=== PATIENT | female | born 1995 | race Caucasian/White ===

== ENCOUNTER 2018-12-11 19:11 | Emergency (ER) | payer OTHER ==
[2018-12-11] MEDS ORDERED: OXYCODONE-ACETAMINOPHEN 5-325 MG TABLET PO ONE ×2 (19:52→22:28)
[2018-12-11] MEDS ORDERED: IBUPROFEN 600 MG TABLET PO ONE (21:06)
--- NOTE | 2018-12-11 21:10 | ER Document Report ---
ED General - General Chief Complaint: Snake Bite Stated Complaint: SNAKE BITE Time Seen by Provider: 12/11/18 19:52 Mode of Arrival: Ambulatory Information source: Patient Notes: 23-year-old female with no reported past medical history presents after being bitten by a snake. Patient states that she was near a body of water when she noticed just make swimming near some children. She states she had a net so she casted it out and caught the snake. She states that she was able to get the snake out of the net and grabbed by the head when it bit her on her right index finger. She said that the snake was black with yellow rings. This occurred approximately 6:30 PM just prior to arrival. Patient is complaining of an aching throbbing pain in her right index finger. Patient is right-hand dominant. TRAVEL OUTSIDE OF THE [place] IN LAST 30 DAYS: No - HPI Onset: Just prior to arrival Onset/Duration: Sudden Quality of pain: Achy, Throbbing Severity: Mild Pain Level: 1 Associated symptoms: denies: Chest pain, Nonproductive cough, Productive cough, Fever, Nausea, Vomiting, Shortness of breath Exacerbated by: Denies Relieved by: Denies Similar symptoms previously: No Recently seen / treated by doctor: No - Related Data Allergies/Adverse Reactions: No Known Allergies Allergy (Unverified 12/11/18 19:12) Past Medical History - General Information source: Patient - Social History Smoking Status: Never Smoker Frequency of alcohol use: None Drug Abuse: None Lives with: Spouse/Significant other Family History: Reviewed & Not Pertinent Patient has suicidal ideation: No Patient has homicidal ideation: No - Medical History Medical History: Negative Renal/ Medical History: Denies: Hx Peritoneal Dialysis Review of Systems - Review of Systems Notes: REVIEW OF SYSTEMS: CONSTITUTIONAL : Denies fever, chills, or sweats. Denies recent illness. Denies weight loss, recent hospitalizations. EENT: Denies visual changes, eye pain. Denies sore throat, oral lesions, difficulty swallowing. CARDIOVASCULAR: Denies chest pain. Denies palpitations. Denies lower extremity edema. RESPIRATORY: Denies cough. Denies shortness of breath, wheezing. GASTROINTESTINAL: Denies abdominal pain or distention. Denies nausea, vomiting, or diarrhea. Denies blood in vomitus, stools, or per rectum. Denies black, tarry stools. Denies constipation. GENITOURINARY: Denies difficulty urinating, painful urination, frequency, blood in urine, or vaginal discharge. MUSCULOSKELETAL: Denies back or neck pain or stiffness. + joint pain SKIN: Denies rash, lesions or sores. HEMATOLOGIC : Denies easy bruising or bleeding. LYMPHATIC: Denies swollen glands. NEUROLOGICAL: Denies confusion or altered mental status. Denies loss of consciousness. Denies dizziness or lightheadedness. Denies headache. Denies weakness or paralysis. Denies problems difficulty with ambulation, slurred speech. Denies sensory loss, numbness, or tingling. Denies seizures. PSYCHIATRIC: Denies anxiety or stress. Denies depression, suicidal ideation, or homicidal ideation. Denies visual or auditory hallucinations. Physical Exam - Vital signs Vitals: Temp Pulse Resp BP Pulse Ox 98.1 F 96 16 127/77 H 97 12/11/18 19:20 12/11/18 19:20 12/11/18 19:20 12/11/18 19:20 12/11/18 19:20 - Notes Notes: PHYSICAL EXAMINATION: GENERAL: Well-appearing, well-nourished and in no acute distress. HEAD: Atraumatic, normocephalic. EYES: Pupils equal round and reactive to light, extraocular movements intact, conjunctiva are normal. ENT: Nares patent, oropharynx clear without exudates. Moist mucous membranes. NECK: Normal range of motion, supple without lymphadenopathy LUNGS: Breath sounds clear to auscultation bilaterally and equal. No wheezes rales or rhonchi. HEART: Regular rate and rhythm without murmurs ABDOMEN: Soft, nontender, nondistended abdomen. No guarding, no rebound. No masses appreciated. Female : deferred Musculoskeletal: Normal range of motion, no pitting or edema. No cyanosis. Right index finger with 2 small superficial abrasions. No lesions that appear to be puncture camacho. No associated swelling, erythema, ecchymosis. No blistering. NEUROLOGICAL: Cranial nerves grossly intact. Normal speech, normal gait. Normal sensory, motor exams PSYCH: Normal mood, normal affect. SKIN: Right index finger with 2 small superficial abrasions. No lesions that appear to be puncture camacho. No associated swelling, erythema, ecchymosis. No blistering. Course - Re-evaluation Re-evalutation: Temp Pulse Resp BP Pulse Ox 98.1 F 96 16 127/77 H 97 12/11/18 19:20 12/11/18 19:20 12/11/18 19:20 12/11/18 19:20 12/11/18 19:20 12/11/18 21:07 23-year-old female with no reported past medical history presents after being bitten by a snake. Patient states that she was near a body of water when she noticed just make swimming near some children. She states she had a net so she casted it out and caught the snake. She states that she was able to get the snake out of the net and grabbed by the head when it bit her on her right index finger. She said that the snake was black with yellow rings. This occurred approximately 6:30 PM just prior to arrival. Patient is complaining of an aching throbbing pain in her right index finger. Patient is right-hand dominant. Vital signs reviewed and within normal limits. Patient does not appear toxic or dehydrated. She is in no acute distress. Exam is significant for 2 small abrasions to the right index finger without associated erythema, swelling, ecchymosis. Does not appear that the snake actually punctured the skin. I did speak to poison control who recommend a 4-hour observation and if there is no swelling at that time patient can be discharged home. Patient did receive Percocet and Motrin for her pain. Patient was evaluated and treated as appropriate for the patient's presenting symptoms and complaint, with consideration of any critical or life threatening conditions that may be associated with their obtained history and exam as noted above. All results were discussed with patient and her partner who is at the bedside patient provided the opportunity to ask questions, and express concerns. Patient was educated on treatments based on their presumed diagnosis as noted above. At this time we will discharge the patient with return precautions and follow-up recommendations. Verbal discharge instructions given a the bedside. Medication warnings reviewed. Patient is in agreement with this plan and has verbalized understanding of return precautions. After careful consideration I feel that that patient can be safely discharged from the emergency department, they were advised to followup with a primary care physician in 2-3 days. Dictation on this chart was performed using voice recognition software and may result in unintended grammatical, spelling, syntax or errors. - Vital Signs Vital signs: Temp Pulse Resp BP Pulse Ox 98.1 F 96 16 127/77 H 97 12/11/18 19:20 12/11/18 19:20 12/11/18 19:20 12/11/18 19:20 12/11/18 19:20 Discharge - Discharge Clinical Impression: Possible snakebite Condition: Good Disposition: HOME, SELF-CARE Instructions: Snakebites ([facility]) Additional Instructions: Follow up with your [id number] hours for further care or return to the ED IMMEDIATELY if symptoms worsen or you have any concerns. If you cannot afford to follow up with your primary care physician a list of low cost clinics have been provided at the end of your discharge papers as well. Most prescribed medications have multiple side effects. The safest thing to do is when filling your prescription speak to your pharmacist regarding possible interactions with your normal home medications and over the counter medications such as Ibuprofen, Tylenol, Benadryl. If you experience any symptoms that cause you discomfort or concern you should discontinue the medication immediately and return to the emergency room or call your primary care physician. Do not use ice, tourniquets on your hand or finger. Please call poison control at [phone] if you have any questions or return to the emergency room immediately if you have worsening pain or began developing swelling. Prescriptions: Hydrocodone/Acetaminophen [[place] 5-325 mg Tablet] 1 tab PO Q6H #8 tablet Ibuprofen [Motrin 600 Mg Tablet] 600 mg PO TID #15 tablet
[2018-12-11 23:30] VITALS: BP 100/58
== END 2018-12-11 23:37 | disposition home or self-care (01) ==
LOC: ER 19:11
DX: S60.410A Abrasion of right index finger, initial encounter (principal); W59.11XA Bitten by nonvenomous snake, initial encounter; Y93.11 Activity, swimming; Y92.838 Other recreation area as the place of occurrence of the external cause
CPT/HCPCS: 99283